=== PATIENT | female | born 1960 | race Caucasian/White ===

== ENCOUNTER 2018-06-19 16:30 | Inpatient (IN) | payer OTHER ==
[~2018-06-19] VITALS: Ht 160 cm; Wt 75.5 kg
[~2018-06-19 16:30] MED LIST: ADV250/50 INH; DALIRESP500 MC1 PO; LAC PO; LEVAQUIN500 MG PO; VENTOLIN H0.09 MG/A1 INH
[2018-06-19 18:20] LABS: CALCIUM 7.8 mg/dL (8.5-10.1); CARBON DIOXIDE 28.4 mmol/L (21-32); CHLORIDE SERUM 97 mmol/L (98-107); CREATININE SERUM 0.9 mg/dL (0.6-1.0); GFR1 > 60 mL/min; GLUCOSE SERUM 134 mg/dL (74-106); POTASSIUM SERUM 3.7 mmol/L (3.5-5.1); SODIUM SERUM 137 mmol/L (136-145)
[2018-06-19 18:25] LABS: ALBUMIN 3.6 g/dL (3.4-5.0); ALKALINE PHOSPHATASE 59 U/L (46-116); ALT/SGPT 13 U/L (14-59); AST/SGOT 16 U/L (15-37); BILIRUBIN TOTAL 0.4 mg/dL (0.20-1.00); TOTAL PROTEIN, SERUM 7.1 g/dL (6.4-8.2)
[2018-06-19 18:45] LABS: PLATELET COUNT 512 x10^3mcL (130-400); RED CELL DISTRIBUTION WIDTH 21.1 % (11.5-14.5)
[2018-06-19 19:14] LABS: BAND NEUTROPHIL 0 % (0-10); BASOPHIL 0 % (0-2); MONOCYTE 2 % (0-7); SEGMENTED NEUTROPHILS 95 % (37-75)
[2018-06-19 19:15] LABS: rbc morphology (normal/abnorm) ABNORMAL (NORMAL)
[2018-06-19 19:16] LABS: PLATELET MORPHOLOGY PLATELETS NORMAL
[2018-06-19 19:18] LABS: MAGNESIUM 2.1 mg/dL (1.8-2.4)
[2018-06-19 21:39] LABS: CHOLESTEROL/HDL RATIO 3.6; PHOSPHOROUS 4.7 mg/dL (2.5-4.9)
[2018-06-19 21:40] LABS: RED BLOOD CELLS 2.65 M/mm3 (4.10-5.10)
[2018-06-19 21:47] LABS: IRON 7 ug/dL (50-170); TOTAL IRON BINDING CAPACITY 573 ug/dL (250-450)
[2018-06-19 21:49] LABS: FREE T4 1.07 ng/dL (0.76-1.46); FREE THYROXINE INDEX 3.4 ug/dL (1.4-4.5)
[2018-06-19 22:15] LABS: T3 TOTAL 1.56 ng/mL
[2018-06-19] MEDS ORDERED: QVAR REDIHALE10.6 G1 IH (22:38)
[2018-06-20] VITALS (9 sets, daily range): BP systolic 100–159; BP diastolic 42–54
[2018-06-20 03:06] LABS: microscopic required? YES; urine erythrocyte NEGATIVE (NEGATIVE)
[2018-06-20 03:16] LABS: PLATELET COUNT 367 x10^3mcL (130-400)
[2018-06-20 03:19] LABS: AMPHETAMINE QUAL UR NONE DETECTED (See below)
[2018-06-20 03:26] LABS: RED CELL DISTRIBUTION WIDTH 28.9 % (11.5-14.5)
[2018-06-20 03:31] LABS: BAND NEUTROPHIL 1 % (0-10); METAMYELOCTE 1 % (0-2); MONOCYTE 3 % (0-7); SEGMENTED NEUTROPHILS 74 % (37-75)
[2018-06-20 03:34] LABS: ovalocyte/elliptocyte 1+; rbc morphology (normal/abnorm) ABNORMAL (NORMAL); tear drop cell (dacryocyte) 1+
[2018-06-20 03:35] LABS: PLATELET MORPHOLOGY LARGE PLATELET SEEN
[2018-06-20 08:00] LABS: PLATELET COUNT 340 x10^3mcL (130-400)
[2018-06-20 08:05] LABS: RED CELL DISTRIBUTION WIDTH 27.9 % (11.5-14.5)
[2018-06-20 08:08] LABS: CALCIUM 8.4 mg/dL (8.5-10.1); CARBON DIOXIDE 26.1 mmol/L (21-32); CHLORIDE SERUM 104 mmol/L (98-107); CREATININE SERUM 0.7 mg/dL (0.6-1.0); GFR1 > 60 mL/min; GLUCOSE SERUM 88 mg/dL (74-106); MAGNESIUM 2.4 mg/dL (1.8-2.4); PHOSPHOROUS 4.5 mg/dL (2.5-4.9); POTASSIUM SERUM 3.4 mmol/L (3.5-5.1); SODIUM SERUM 136 mmol/L (136-145)
[2018-06-20 08:29] LABS: BAND NEUTROPHIL 0 % (0-10); BASOPHIL 0 % (0-2); METAMYELOCTE 1 % (0-2); MONOCYTE 4 % (0-7); SEGMENTED NEUTROPHILS 73 % (37-75); rbc morphology (normal/abnorm) ABNORMAL (NORMAL)
[2018-06-20 08:30] LABS: ovalocyte/elliptocyte 1+
[2018-06-20 08:31] LABS: tear drop cell (dacryocyte) 1+
[2018-06-21 05:06] VITALS: BP 112/53
[2018-06-21 09:25] VITALS: BP 100/38
[2018-06-21 11:51] LABS: PLATELET COUNT 400 x10^3mcL (130-400)
[2018-06-21 12:09] LABS: RED CELL DISTRIBUTION WIDTH 26.9 % (11.5-14.5)
[2018-06-21 12:15] LABS: BAND NEUTROPHIL 3 % (0-10); MONOCYTE 5 % (0-7); SEGMENTED NEUTROPHILS 72 % (37-75)
[2018-06-21 12:16] LABS: METAMYELOCTE 1 % (0-2); rbc morphology (normal/abnorm) ABNORMAL (NORMAL)
[2018-06-21 12:17] LABS: ovalocyte/elliptocyte 1+; tear drop cell (dacryocyte) 1+
[2018-06-21 13:17] VITALS: BP 90/29
[2018-06-21 18:04] VITALS: BP 98/40
[2018-06-21 21:08] VITALS: BP 100/42
[2018-06-22 05:31] VITALS: BP 109/44
[2018-06-22] MEDS ORDERED: FER300 PO (09:22)
[2018-06-22 10:11] VITALS: BP 99/35
[2018-06-22 10:17] LABS: CALCIUM 7.8 mg/dL (8.5-10.1); CARBON DIOXIDE 30.1 mmol/L (21-32); CHLORIDE SERUM 104 mmol/L (98-107); CREATININE SERUM 0.8 mg/dL (0.6-1.0); GFR1 > 60 mL/min; GLUCOSE SERUM 101 mg/dL (74-106); SODIUM SERUM 139 mmol/L (136-145)
[2018-06-22 10:51] LABS: PLATELET COUNT 419 x10^3mcL (130-400); RED CELL DISTRIBUTION WIDTH 27.8 % (11.5-14.5)
[2018-06-22 11:36] LABS: BAND NEUTROPHIL 4 % (0-10); MONOCYTE 5 % (0-7); MYELOCYTE 1 % (0-2); SEGMENTED NEUTROPHILS 73 % (37-75)
[2018-06-22 11:37] LABS: rbc morphology (normal/abnorm) ABNORMAL (NORMAL)
[2018-06-22 11:38] LABS: PLATELET MORPHOLOGY PLATELETS NORMAL; ovalocyte/elliptocyte 1+; schistocyte (helmet cell) 1+; tear drop cell (dacryocyte) 1+
[2018-06-22] MEDS ORDERED: XARELTO10 M1 PO ×2 (13:27)
[2018-06-22 13:28] VITALS: BP 99/35
[2018-06-22] MEDS ORDERED: PROTONIX40 MG PO (13:52)
== END 2018-06-22 19:03 | disposition home or self-care (01) | DRG 241 ==
LOC: ED 16:30 → DU 20:04
PROVIDERS: Emergency Medicine; Internal Medicine; Internal Medicine Gastroenterology
PROC: 30233N1 Transfusion of Nonautologous Red Blood Cells into Peripheral Vein, Percutaneous Approach (ICD-10-PCS; principal; 2018-06-19)
PROC: 0DB68ZX Excision of Stomach, Via Natural or Artificial Opening Endoscopic, Diagnostic (ICD-10-PCS; 2018-06-21 09:00)
PROC: 0DJD8ZZ Inspection of Lower Intestinal Tract, Via Natural or Artificial Opening Endoscopic (ICD-10-PCS; 2018-06-21 09:00)
DX: K25.4 Chronic or unspecified gastric ulcer with hemorrhage (principal); I26.99 Other pulmonary embolism without acute cor pulmonale; N17.0 Acute kidney failure with tubular necrosis; D62 Acute posthemorrhagic anemia; E78.5 Hyperlipidemia, unspecified; J45.909 Unspecified asthma, uncomplicated; R73.03 Prediabetes; K44.9 Diaphragmatic hernia without obstruction or gangrene; Z83.3 Family history of diabetes mellitus; Z98.51 Tubal ligation status; K21.9 Gastro-esophageal reflux disease without esophagitis; I82.431 Acute embolism and thrombosis of right popliteal vein; T39.395A Adverse effect of other nonsteroidal anti-inflammatory drugs [NSAID], initial encounter; Y92.89 Other specified places as the place of occurrence of the external cause
CPT/HCPCS: 43235; 45378; 83880; 84439; 85378; 87046; 87046-59; 94150; C9113; J0696; J1200; J1610; J1644; J2250; J2270; J2310; J2405; J2765; J2916; J3010; J3490; J3535; J7030; J7040; J7050; J7620; P9016; Q0092; Q9967

== ENCOUNTER 2020-10-01 21:15 | Emergency (ER) | payer OTHER ==
[~2020-10-01] VITALS: Ht 162.6 cm; Wt 68.0 kg
[~2020-10-01 21:15] MED LIST changes: +FER300 PO; +PROTONIX40 MG PO; +QVAR REDIHALE10.6 G1 IH; +XARELTO10 M1 PO
[2020-10-01 21:35] VITALS: Ht 162.6 cm; Wt 68.0 kg
[2020-10-01 22:19] VITALS: BP 117/84
== END 2020-10-01 22:19 | disposition home or self-care (01) ==
LOC: ED 21:15
DX: S20.469A Insect bite (nonvenomous) of unspecified back wall of thorax, initial encounter (principal); J45.909 Unspecified asthma, uncomplicated; W57.XXXA Bitten or stung by nonvenomous insect and other nonvenomous arthropods, initial encounter; Y93.89 Activity, other specified; Y92.89 Other specified places as the place of occurrence of the external cause; Y99.8 Other external cause status